=== PATIENT | female | born 1940 | race Caucasian/White ===

== ENCOUNTER 2023-08-26 11:56 | Outpatient (CLI) | payer MEDICARE, BC, SELFPAY | END 2023-08-26 11:57 | disposition home or self-care (01) | LOC: NFLDREF 08-27 11:17 | PROVIDERS: PCP Family Medicine; Referring Provider Family Medicine; Visit Provider Physician Assistant | DX: R30.0 Dysuria (principal); N39.0 Urinary tract infection, site not specified | CPT/HCPCS: 87086; 87186 ==

== ENCOUNTER 2024-04-03 12:45 | Outpatient (CLI) | payer MEDICARE, BC, SELFPAY | END 2024-04-03 12:46 | disposition home or self-care (01) | LOC: NFLDREF 04-05 04:30 | PROVIDERS: PCP Family Medicine; Referring Provider Family Medicine; Visit Provider Nurse Practitioner Family | DX: R39.9 Unspecified symptoms and signs involving the genitourinary system (principal); N76.0 Acute vaginitis | CPT/HCPCS: 87086; 87186 ==